=== PATIENT | male | born 1990 | race Caucasian/White ===

== ENCOUNTER 2023-10-17 22:18 | Inpatient (IN) | payer OTHER ==
[2023-10-17 23:02] VITALS: BMI 27.6
[2023-10-18] MEDS ORDERED: BISMUTH SUBSALICYLATE 524 MG/30 ML PO PRN (04:12)
[2023-10-18] MEDS ORDERED: NALOXONE HCL 0.4 MG/ML VIAL IM PRN (04:12)
[2023-10-18] MEDS ORDERED: hydrOXYzine PAMOATE 25 MG CAPSULE (FP) PO PRN ×2 (04:12→12:35)
[2023-10-18] MEDS ORDERED: MAGNESIUM HYDROX 2400MG/30ML ORAL SUSPENSION 30 ML CUP PO PRN (04:12)
[2023-10-18] MEDS ORDERED: BENZONATATE 200 MG CAPSULE PO PRN (04:12)
[2023-10-18] MEDS ORDERED: MAG HYDROX/AL HYDROX/SIMETH 30 ML UNIT-DOSE CUP PO PRN (04:12)
[2023-10-18] MEDS ORDERED: DICYCLOMINE HCL 10 MG CAPSULE PO PRN (04:12)
[2023-10-18] MEDS ORDERED: POLYETHYLENE GLYCOL (HEALTHYLAX) 3350 17 GM PACKET PO PRN (04:12)
[2023-10-18] MEDS ORDERED: guaiFENesin 600 MG TABLET.ER (FP) PO PRN (04:12)
[2023-10-18] MEDS ORDERED: LOPERAMIDE HCL 2 MG CAPSULE PO PRN (04:12)
[2023-10-18] MEDS ORDERED: NALOXONE (NARCAN) HCL 4 MG/0.1 ML SPRAY NS PRN (04:12)
[2023-10-18] MEDS ORDERED: IBUPROFEN 400 MG TABLET (FP) PO PRN (04:12)
[2023-10-18] MEDS ORDERED: methaDONE HCL 10 MG TABLET PO SCH (09:45)
[2023-10-18] MEDS: NICOTINE 21 MG/24 HOURS TOPICAL PATCH TD SCH (09:52)
[2023-10-18] MEDS: PRENATAL VITAMINS W/ FOLIC ACID TABLET (FP) PO SCH (09:52)
[2023-10-18] MEDS: NICOTINE POLACRILEX 2 MG GUM BUC PRN (10:22)
[2023-10-18] MEDS: diazePAM 5 MG TABLET PO SCH (10:59)
[2023-10-18] MEDS: diazePAM 5 MG TABLET PO PRN (14:44)
[2023-10-18 15:53] LABS: HEMATOCRIT 37.9 % (35.4-49); HEMOGLOBIN 12.5 GM/dL (11.7-16.9); MCH 29.7 pg (25.7-33.7); MEAN CELL VOLUME 89.9 fl (80-96); PLATELET COUNT 307 10^3/uL (134-434); RBC 4.21 M/mm3 (4.00-5.60); RDW 13.5 % (11.9-15.9); WHITE BLOOD COUNT 6.7 K/mm3 (4.0-10.0)
[2023-10-18 16:51] LABS: HIV INTERPRETATION NEGATIVE (NEGATIVE)
[2023-10-18] MEDS: ACETAMINOPHEN 325 MG TABLET (FP) PO PRN (17:27)
[2023-10-18] MEDS: THIAMINE 100 MG TABLET PO SCH (22:08)
[2023-10-18] MEDS: MELATONIN 5 MG TABLETS PO SCH (22:08)
[2023-10-19] MEDS: ONDANSETRON *ODT* 4 MG TABLET SL PRN (08:43)
[2023-10-20] MEDS: diazePAM 5 MG TABLET PO SCH (05:15)
[2023-10-20] MEDS: hydrOXYzine PAMOATE 50 MG CAPSULE (FP) PO PRN (09:18)
[2023-10-20] MEDS: METHOCARBAMOL 500 MG TABLET PO PRN (09:18)
[2023-10-21] MEDS: diazePAM 5 MG TABLET PO SCH (05:59)
[2023-10-21] MEDS: IBUPROFEN 600 MG TABLET (FP) PO PRN (06:03)
[2023-10-22] MEDS: diazePAM 5 MG TABLET PO ONE (05:25)
[2023-10-22] MEDS: BENZOCAINE/MENTHOL (CHLORASEPTIC ) LOZENGE MM PRN (05:26)
[2023-10-22 06:16] VITALS: RESP 18
[2023-10-22 09:19] VITALS: BP 103/60; PULSE 96; TEMP 97.6
== END 2023-10-22 09:44 | disposition home or self-care (01) | DRG 773 ==
LOC: YASAS 22:18 → Y3N 10-18 07:52
PROVIDERS: ADMIT Allergy & Immunology; ATTEND Surgery
PROC: HZ2ZZZZ Detoxification Services for Substance Abuse Treatment (ICD-10-PCS; principal; 2023-10-18)
DX: F11.23 Opioid dependence with withdrawal (principal); F13.230 Sedative, hypnotic or anxiolytic dependence with withdrawal, uncomplicated; F14.20 Cocaine dependence, uncomplicated; F17.210 Nicotine dependence, cigarettes, uncomplicated; F19.982 Other psychoactive substance use, unspecified with psychoactive substance-induced sleep disorder; F19.980 Other psychoactive substance use, unspecified with psychoactive substance-induced anxiety disorder; F90.9 Attention-deficit hyperactivity disorder, unspecified type; Z86.19 Personal history of other infectious and parasitic diseases; Z56.0 Unemployment, unspecified; Z59.00 Homelessness unspecified
CPT/HCPCS: 36415; 80305; 80307; 85027; 86780; 87389; 93005; 93010; Q0162